=== PATIENT | female | born 1980 | race Two or more races ===

== ENCOUNTER 2018-03-27 13:09 | Emergency (ER) | payer MEDICAID ==
[~2018-03-27] VITALS: Ht 167.6 cm; Wt 81.8 kg
[~2018-03-27 13:09] MED LIST: ALBU8.5H8 IH; CHOL500044 PO; CITA40TA22 PO; HYDR-4353 PO; IBUP-1985 PO; LORA-269 PO; OXYC-150 PO; TIZA4CAP PO; TOP100T PO; TURM500C3 PO; ZALE10CA PO
[2018-03-27 13:21] VITALS: BP 113/74
== END 2018-03-27 14:30 | disposition home or self-care (01) ==
LOC: ER 13:09
DX: M25.531 Pain in right wrist (principal); G89.29 Other chronic pain; G43.909 Migraine, unspecified, not intractable, without status migrainosus; Z88.1 Allergy status to other antibiotic agents; Z88.5 Allergy status to narcotic agent; Z79.899 Other long term (current) drug therapy; W18.39XA Other fall on same level, initial encounter; Y93.89 Activity, other specified; Y92.89 Other specified places as the place of occurrence of the external cause; Y99.8 Other external cause status
CPT/HCPCS: 73110; 99284

== ENCOUNTER 2018-08-18 05:11 | Day surgery (SDC) | payer MEDICAID ==
[2018-08-16 15:24] LABS: BASOPHILS # (AUTO) 0.1 X10'3 (0-0.2); EOSINOPHILS # (AUTO) 0.2 X10'3 (0-0.9); EOSINOPHILS % (AUTO) 2.6 % (0-6); LYMPHOCYTES # (AUTO) 2.2 X10'3 (1.1-4.8); LYMPHOCYTES % (AUTO) 28.8 % (21-51); MEAN CORPUSCULAR HEMOGLOBIN 21.2 PG (27.0-31.0); MEAN CORPUSCULAR HGB CONC 30.9 g/dL (33.0-36.5); MEAN CORPUSCULAR VOLUME 68.5 FL (78-98); MEAN PLATELET VOLUME 8.5 FL (7.4-10.4); MONOCYTES # (AUTO) 0.4 X10'3 (0-0.9); MONOCYTES % (AUTO) 5.2 % (2-12); NEUTROPHILS # (AUTO) 4.7 X10'3 (1.8-7.7); NEUTROPHILS % (AUTO) 62.4 % (42-75); PRE OP HEMATOCRIT 33.3 % (35.0-45.0); PRE OP PLATELET COUNT 336 X10'3 (140-440); RED BLOOD COUNT 4.86 X10'6 (4.20-5.60); RED CELL DISTRIBUTION WIDTH 18.3 % (11.5-14.5)
[2018-08-16 15:27] LABS: PRE OP HEMOGLOBIN 10.3 g/dL (12.0-16.0)
[2018-08-16 15:34] LABS: PRE OP PROTIME 10.3 SECONDS (9.0-12.0)
[2018-08-16 15:35] LABS: HCG SERUM QL NEGATIVE
[2018-08-16 15:42] LABS: ALBUMIN 3.5 G/DL (3.4-5.0); ALBUMIN/GLOBULIN RATIO 0.9 (1.1-1.5); ALKALINE PHOSPHATASE 71 IU/L (46-116); BLOOD UREA NITROGEN 10 MG/DL (7-18); BUN/CREATININE RATIO 13.7 (6.6-38.0); CALCIUM 8.7 MG/DL (8.5-10.1); CHLORIDE 108 MMOL/L (99-107); CREATININE 0.73 MG/DL (0.40-0.90); PRE OP ALT 22 U/L (30-65); PRE OP ANION GAP 11 (8-16); PRE OP AST 13 U/L (10-37); PRE OP BILIRUB, TOTAL 0.1 MG/DL (0.0-1.0); PRE OP GLUCOSE 100 MG/DL (70-104); PRE OP POTASSIUM 4.2 MMOL/L (3.4-5.1); PRE OP SODIUM 142 MMOL/L (135-145); TOTAL CARBON DIOXIDE 23.4 MMOL/L (24-32); TOTAL PROTEIN 7.5 G/DL (6.4-8.2); eGFR 89 ML/MIN
[2018-08-16 16:07] LABS: CLARITY,URINE SLIGHTLY CLOUDY (Clear); COLOR,URINE YELLOW (Yellow); GLUCOSE, URINE NEGATIVE (Neg); KETONES,URINE NEGATIVE (Neg); LEUKOCYTE ESTERASE ,URINE NEGATIVE (Neg); NITRITES, URINE NEGATIVE (Neg); OCCULT BLOOD,URINE NEGATIVE (Neg); PH,URINE 5.5 (4.8-8.0); PROTEIN,URINE NEGATIVE (Neg); UA COLLECTION TYPE CLN CATCH MIDSTREAM; UROBILINOGEN,URINE 0.2 E.U/dL (0.2-1.0)
[2018-08-16 16:12] LABS: PLATELET ESTIMATE NORMAL
[2018-08-16 16:13] LABS: ANISOCYTOSIS 2+; ELLIPTOCYTES FEW; MICROCYTOSIS 2+; POIKILOCYTOSIS 1+
[2018-08-16 16:17] LABS: BACTERIA,URINE 2+ /HPF (Neg); MUCUS STRANDS MODERATE /LPF (Neg); RBC,URINE NONE SEEN /HPF (0-2); SQUAMOUS EPITHELIAL CELL,UR MANY /LPF (FEW); WBC,URINE 0-4 /HPF (0-4)
[~2018-08-18] VITALS: Ht 167.6 cm; Wt 83.0 kg
[2018-08-18] VITALS (14 sets, daily range): BP systolic 112–132; BP diastolic 53–93
[~2018-08-18 05:11] MED LIST changes: -CHOL500044 PO; +FLUT1AER7 INH; -IBUP-1985 PO; +IRON150C5 PO; -LORA-269 PO; -OXYC-150 PO; +OXYC10TA47 PO; -TURM500C3 PO; +ringers solution, lacted 1,000 ML IV SCH
[2018-08-18] MEDS ORDERED: famotidine 20mg tablet PO ONE (05:30)
[2018-08-18] MEDS ORDERED: albuterol 2.5 MG/3 ML nebule NEB ONE (05:30)
[2018-08-18] MEDS ORDERED: LIDOcaine 1% (10mg/ml) 2ml vial ONE (05:47)
[2018-08-18] MEDS ORDERED: fentaNYL/PF 50MCG/1 ML 2ML syringe ONE (07:37)
[2018-08-18] MEDS ORDERED: propofol inj 20 ML IV ONE (07:37)
[2018-08-18] MEDS ORDERED: midazolam 2 mg/2 ml injection ONE (07:37)
[2018-08-18] MEDS ORDERED: ringers solution, lacted 1,000 ML IV SCH (07:43)
[2018-08-18] MEDS ORDERED: meperidine/PF 25mg/ml syringe IV PRN ×3 (07:45)
[2018-08-18] MEDS ORDERED: morphine 4 MG/ML inj SYRINge IV PRN ×2 (07:45)
[2018-08-18] MEDS ORDERED: proCHLORperazine 10 MG/2 ml inj IV PRN (07:45)
[2018-08-18] MEDS ORDERED: ondansetron/PF 4mg/2ml inj IV PRN (07:45)
[2018-08-18] MEDS ORDERED: ketorolac trometh. 30mg/ml inj. ONE (08:18)
--- NOTE | 2018-08-18 08:33 | NUR ---
Received from OR via [facility] , accompanied by Anesthesiologist NOAH and report given by Anesthesiolgist. PATIENT WITH 20G PIV IN RIGHT UE RUNNING LR AT 100. DENIES PAIN AFTER LMA REMOVED. VSS AT THIS TIME. LINDSAY PAD IN PLACE. 10L MASK ON WITH 100% SATURATIONS. Addendum: 08/18/18 at 0882 by Prasad Hughes RN, RN Amended: Links added.
[2018-08-18] MEDS ORDERED: oxyCODONE/APAP 5-325mg tablet PO ONE (08:40)
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
== END 2018-08-18 10:23 | disposition home or self-care (01) ==
LOC: PAS 05:11
PROVIDERS: ATTEND Obstetrics & Gynecology
DX: N92.0 Excessive and frequent menstruation with regular cycle (principal); J45.909 Unspecified asthma, uncomplicated; G47.30 Sleep apnea, unspecified; F41.9 Anxiety disorder, unspecified; F32.9 Major depressive disorder, single episode, unspecified; M79.7 Fibromyalgia; I69.854 Hemiplegia and hemiparesis following other cerebrovascular disease affecting left non-dominant side; Z88.0 Allergy status to penicillin; Z88.1 Allergy status to other antibiotic agents; Z88.8 Allergy status to other drugs, medicaments and biological substances; Z79.899 Other long term (current) drug therapy; Z98.890 Other specified postprocedural states; Z79.01 Long term (current) use of anticoagulants; Z98.1 Arthrodesis status; Z98.51 Tubal ligation status; Z98.2 Presence of cerebrospinal fluid drainage device
CPT/HCPCS: 36415; 58563; 80053; 81001; 82948; 84703; 85025; 85610; 85730; 86885; 86900; 86901; A6255; J1885; J2175; J2250; J2270; J2704; J3010; J3490; J7030; J7120; A4355

== ENCOUNTER 2018-10-26 18:11 | Emergency (ER) | payer MEDICAID ==
[~2018-10-26] VITALS: Ht 170.2 cm; Wt 83.9 kg
[~2018-10-26 18:11] MED LIST changes: -ringers solution, lacted 1,000 ML IV SCH
[2018-10-26 18:28] VITALS: BP 106/68
[2018-10-26] MEDS ORDERED: KETO10DR3 EACHEYE (18:55)
== END 2018-10-26 19:04 | disposition home or self-care (01) ==
LOC: ER 18:12
DX: H10.12 Acute atopic conjunctivitis, left eye (principal); G43.909 Migraine, unspecified, not intractable, without status migrainosus; G89.29 Other chronic pain; Z98.890 Other specified postprocedural states; Z88.1 Allergy status to other antibiotic agents; Z88.0 Allergy status to penicillin; Z88.5 Allergy status to narcotic agent; Z79.899 Other long term (current) drug therapy
CPT/HCPCS: 99282

== ENCOUNTER 2018-10-31 11:15 | Emergency (ER) | payer MEDICAID ==
[~2018-10-31] VITALS: Ht 170.2 cm; Wt 84.1 kg
[~2018-10-31 11:15] MED LIST changes: +KETO10DR3 EACHEYE
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
--- NOTE | 2018-10-31 12:23 | NUR ---
PT UNABLE TO WAIT FOR PCP AT 330 DUE TO PAIN
[2018-10-31] MEDS ORDERED: metoclopramide 5 mg/ml inj IM ONE (12:50)
[2018-10-31] MEDS ORDERED: diphenhydrAMINE 50 mg/ml inj IM ONE (12:50)
--- NOTE | 2018-10-31 12:51 | NUR ---
REPEATED VISUAL ACUITY, NO CHANGE NOTED. CAN HARDLY SEE OUT OF HER LEFT, ABOUT 20/20 IN THE RIGHT
[2018-10-31 13:05] VITALS: BP 121/75
== END 2018-10-31 14:20 | disposition home or self-care (01) ==
LOC: ER 11:15
DX: G43.909 Migraine, unspecified, not intractable, without status migrainosus (principal); H53.142 Visual discomfort, left eye; G89.29 Other chronic pain; Z88.1 Allergy status to other antibiotic agents; Z88.0 Allergy status to penicillin; Z88.5 Allergy status to narcotic agent; Z88.6 Allergy status to analgesic agent; Z79.899 Other long term (current) drug therapy; Z98.890 Other specified postprocedural states
CPT/HCPCS: 96372; 99283; J1200; J2765

== ENCOUNTER 2019-07-26 14:08 | Outpatient (CLI) | payer MEDICAID ==
[~2019-07-26] VITALS: Ht 170.2 cm; Wt 83.9 kg
[2019-07-26] MEDS ORDERED: albuterol 2.5 MG/3 ML nebule NEB PRN (15:10)
== END 2019-07-26 23:59 | disposition home or self-care (01) ==
LOC: RT 14:08
PROVIDERS: ATTEND Family Medicine
DX: R06.02 Shortness of breath (principal)
CPT/HCPCS: 94060; 94760

== ENCOUNTER 2019-12-14 19:32 | Inpatient (IN) | payer MEDICAID ==
[~2019-12-14] VITALS: Ht 167.6 cm; Wt 84.1 kg
[2019-12-14 20:40] LABS: BASOPHILS % (AUTO) 0.2 % (0-1); EOSINOPHILS % (AUTO) 0.2 % (0-6); HEMATOCRIT 41.1 % (35.0-45.0); HEMOGLOBIN 13.7 g/dl (12.0-16.0); LYMPHOCYTES # (AUTO) 0.6 X10'3 (1.1-4.8); LYMPHOCYTES % (AUTO) 10.8 % (21-51); MEAN CORPUSCULAR HEMOGLOBIN 28.7 PG (27.0-31.0); MEAN CORPUSCULAR HGB CONC 33.3 g/dL (33.0-36.5); MEAN PLATELET VOLUME 8.4 FL (7.4-10.4); MONOCYTES # (AUTO) 0.5 X10'3 (0-0.9); MONOCYTES % (AUTO) 8.3 % (2-12); NEUTROPHILS # (AUTO) 4.5 X10'3 (1.8-7.7); NEUTROPHILS % (AUTO) 80.5 % (42-75); PLATELET COUNT 246 X10'3 (140-440); RED BLOOD COUNT 4.78 X10'6 (4.20-5.60); RED CELL DISTRIBUTION WIDTH 13.9 % (11.5-14.5); WHITE BLOOD COUNT 5.6 X10'3 (4.5-11.0)
[2019-12-14 20:50] LABS: ALANINE AMINOTRANSFERASE 50 U/L (12-78); ALBUMIN/GLOBULIN RATIO 0.7 (1.1-1.5); ALKALINE PHOSPHATASE 78 IU/L (46-116); ANION GAP 13 (8-16); ASPARTATE AMINO TRANSFERASE 36 U/L (10-37); BILIRUBIN,TOTAL 0.4 MG/DL (0.1-1.0); BLOOD UREA NITROGEN 13 MG/DL (7-18); BUN/CREATININE RATIO 16.7 (6.6-38.0); CALCIUM 9.2 MG/DL (8.5-10.1); CHLORIDE 107 MMOL/L (99-107); CREATININE 0.78 MG/DL (0.40-0.90); GLUCOSE 101 MG/DL (70-104); POTASSIUM 3.5 MMOL/L (3.5-5.1); SODIUM 144 MMOL/L (135-145); TOTAL CARBON DIOXIDE 24.2 MMOL/L (24-32); TOTAL PROTEIN 7.6 G/DL (6.4-8.2); eGFR 82 ML/MIN
[2019-12-14] MEDS ORDERED: DOXYCYCLINE 100MG CAPSULE PO STA (21:22)
[2019-12-14] MEDS ORDERED: SUMA25TA35 PO (21:44)
--- NOTE | 2019-12-14 23:10 | NUR ---
PT CO HEADACHE 09/28, JOHN HELLER NOTIFIED, VERBAL ORDER TYLENOL 650 MG
[2019-12-14] MEDS ORDERED: acetaminophen 325mg tablet PO ONE (23:15)
[2019-12-14] MEDS ORDERED: normal saline 1000ml 1,000 ML IV SCH (23:36)
[2019-12-14] MEDS ORDERED: ondansetron/PF 4mg/2ml inj IV PRN (23:40)
[2019-12-14] MEDS ORDERED: potassium Cl 20 mEq SR tablet PO PRN ×2 (23:40)
[2019-12-14] MEDS ORDERED: magnesium 2GM in 50ml NS 50 ML IV PRN (23:40)
[2019-12-14] MEDS ORDERED: potassium CL 10mEq/100ml bag 100 ML IV PRN ×2 (23:40)
[2019-12-14] MEDS ORDERED: magnesium 4gm in 100ml NS 100 ML IV PRN (23:40)
[2019-12-14] MEDS ORDERED: magnesium Cl slow-release 64mg tablet PO PRN (23:40)
[2019-12-14] MEDS ORDERED: levoFLOXACIN-Levaquin 500mg/D5 100 ML IV SCH (23:40)
[2019-12-14 23:50] LABS: HCG SERUM QL NEGATIVE
[2019-12-15 00:30] VITALS: BP 108/70
[2019-12-15] MEDS ORDERED: GABA-530 PO (00:44)
[2019-12-15] MEDS ORDERED: gabapentin 100mg capsule PO SCH (02:10)
[2019-12-15 04:22] LABS: BASOPHILS % (AUTO) 0.1 % (0-1); EOSINOPHILS % (AUTO) 0.2 % (0-6); HEMOGLOBIN 13.2 g/dl (12.0-16.0); LYMPHOCYTES # (AUTO) 0.6 X10'3 (1.1-4.8); LYMPHOCYTES % (AUTO) 11.1 % (21-51); MEAN CORPUSCULAR HEMOGLOBIN 28.7 PG (27.0-31.0); MEAN CORPUSCULAR HGB CONC 33.8 g/dL (33.0-36.5); MEAN CORPUSCULAR VOLUME 85.2 FL (78-98); MEAN PLATELET VOLUME 8.1 FL (7.4-10.4); MONOCYTES # (AUTO) 0.5 X10'3 (0-0.9); MONOCYTES % (AUTO) 10.3 % (2-12); NEUTROPHILS # (AUTO) 4.1 X10'3 (1.8-7.7); NEUTROPHILS % (AUTO) 78.3 % (42-75); PLATELET COUNT 249 X10'3 (140-440); RED BLOOD COUNT 4.58 X10'6 (4.20-5.60); RED CELL DISTRIBUTION WIDTH 13.8 % (11.5-14.5); WHITE BLOOD COUNT 5.2 X10'3 (4.5-11.0)
[2019-12-15 04:29] LABS: ALBUMIN 2.7 G/DL (3.4-5.0); ANION GAP 12 (8-16); BLOOD UREA NITROGEN 12 MG/DL (7-18); BUN/CREATININE RATIO 18.8 (6.6-38.0); CALCIUM 8.8 MG/DL (8.5-10.1); CHLORIDE 108 MMOL/L (99-107); CREATININE 0.64 MG/DL (0.40-0.90); GLUCOSE 94 MG/DL (70-104); POTASSIUM 3.6 MMOL/L (3.5-5.1); SODIUM 144 MMOL/L (135-145); TOTAL CARBON DIOXIDE 24.2 MMOL/L (24-32); eGFR > 90 ML/MIN
[2019-12-15 06:00] VITALS: BP 101/59
--- NOTE | 2019-12-15 06:30 | NUR ---
Patient in room [facility]TH[facility] 4018. I have received report from Duyen and had the opportunity to ask questions and assume patient care.
--- NOTE | 2019-12-15 06:44 | NUR ---
Problems reprioritized. Patient report given, questions answered & plan of care reviewed with RAFIA Osborne.
[2019-12-15 08:00] VITALS: BP 112/65
[2019-12-15] MEDS ORDERED: K and/or MAG REPLACEMENT MC SCH (08:00)
[2019-12-15] MEDS ORDERED: enoxaparin 40mg/0.4ml syringe SUBCUT SCH (08:40)
--- NOTE | 2019-12-15 09:57 | NUR ---
PAGER ID: [phone] MESSAGE: Pallavi Ms. Alegre in [phone] would like something for pain, thank you [place] #[phone]
[2019-12-15] MEDS ORDERED: acetaminophen 325mg tablet PO PRN (10:00)
[2019-12-15 10:05] LABS: C-REACTIVE PROTEIN 9.17 MG/DL (0.0-0.5)
--- NOTE | 2019-12-15 11:20 | NUR ---
Discharge instructions reviewed with pt. Pt verbalized understanding. Pt dressed, collected belongings, placed N-95 mask on pt and pt was wheeled downstairs to be driven home by her spouse.
== END 2019-12-15 11:45 | disposition home or self-care (01) | DRG 137 ==
LOC: ER 19:32 → UNDOADMIN 23:36 → ED HOLD 23:36 → ORTHO 4S 12-15 00:15
PROVIDERS: ADMIT Internal Medicine; ATTEND Internal Medicine
DX: U07.1 COVID-19 (principal); J12.89 Other viral pneumonia; J44.0 Chronic obstructive pulmonary disease with (acute) lower respiratory infection; F32.9 Major depressive disorder, single episode, unspecified; F41.9 Anxiety disorder, unspecified; G43.909 Migraine, unspecified, not intractable, without status migrainosus; R09.02 Hypoxemia; G89.29 Other chronic pain; R19.7 Diarrhea, unspecified; Z88.0 Allergy status to penicillin; Z88.5 Allergy status to narcotic agent
CPT/HCPCS: 36415; 71045; 80048; 80053; 83605; 83615; 83735; 84703; 85025; 85379; 86140; 87040; 87070; 87081; 93005; 99285; G0378; J1650; J1956; J7030

== ENCOUNTER 2021-01-13 17:53 | Emergency (ER) | payer MEDICAID ==
[~2021-01-13] VITALS: Ht 167.6 cm; Wt 90.0 kg
[~2021-01-13 17:53] MED LIST changes: +ALBU8.5H17 IH; -ALBU8.5H8 IH; +GABA-530 PO; -KETO10DR3 EACHEYE; +SUMA25TA35 PO
[2021-01-14] MEDS ORDERED: dexamethasone sod phosphate 10mg/ml inj IV STA (00:01)
[2021-01-14] MEDS ORDERED: proCHLORperazine 10 MG/2 ml inj IV ONE (00:05)
[2021-01-14] MEDS ORDERED: normal saline 1000ML IV soln IVB ONE (00:05)
[2021-01-14] MEDS ORDERED: ketorolac trometh. 30mg/ml inj. IV ONE (00:05)
[2021-01-14 01:01] LABS: ALANINE AMINOTRANSFERASE 39 U/L (12-78); ALBUMIN 3.8 G/DL (3.4-5.0); ALKALINE PHOSPHATASE 77 IU/L (46-116); ANION GAP 11 (8-16); ASPARTATE AMINO TRANSFERASE 21 U/L (10-37); BILIRUBIN,TOTAL 0.4 MG/DL (0.1-1.0); BLOOD UREA NITROGEN 10 MG/DL (7-18); BUN/CREATININE RATIO 14.9 (6.6-38.0); CALCIUM 8.9 MG/DL (8.5-10.1); CHLORIDE 109 MMOL/L (99-107); CREATININE 0.67 MG/DL (0.40-0.90); GLUCOSE 87 MG/DL (70-104); POTASSIUM 3.9 MMOL/L (3.5-5.1); SODIUM 146 MMOL/L (135-145); TOTAL CARBON DIOXIDE 25.6 MMOL/L (24-32); TOTAL PROTEIN 7.6 G/DL (6.4-8.2); eGFR > 90 ML/MIN
[2021-01-14 01:09] LABS: C-REACTIVE PROTEIN 0.39 MG/DL (0.0-0.5)
[2021-01-14 01:19] LABS: BASOPHILS % (AUTO) 0.5 % (0-1); EOSINOPHILS # (AUTO) 0.2 X10'3 (0-0.9); EOSINOPHILS % (AUTO) 2.6 % (0-6); HEMATOCRIT 40.7 % (35.0-45.0); LYMPHOCYTES # (AUTO) 2.5 X10'3 (1.1-4.8); MEAN CORPUSCULAR HEMOGLOBIN 29.7 PG (27.0-31.0); MEAN CORPUSCULAR HGB CONC 34.4 g/dL (33.0-36.5); MEAN CORPUSCULAR VOLUME 86.5 FL (78-98); MEAN PLATELET VOLUME 8.7 FL (7.4-10.4); MONOCYTES # (AUTO) 0.5 X10'3 (0-0.9); MONOCYTES % (AUTO) 5.5 % (2-12); NEUTROPHILS # (AUTO) 5.6 X10'3 (1.8-7.7); NEUTROPHILS % (AUTO) 63.4 % (42-75); PLATELET COUNT 251 X10'3 (140-440); RED BLOOD COUNT 4.71 X10'6 (4.20-5.60); RED CELL DISTRIBUTION WIDTH 13.8 % (11.5-14.5); WHITE BLOOD COUNT 8.9 X10'3 (4.5-11.0)
--- NOTE | 2021-01-14 01:35 | NUR ---
PT IS ASKING TO LEAVE DR INMAN TO BEDSIDE INCOURAGED PT TO TAKE THE REMAINGING FLUIDS
[2021-01-14 01:43] VITALS: BP 123/44
== END 2021-01-14 01:45 | disposition home or self-care (01) ==
LOC: ER 17:54
DX: G43.909 Migraine, unspecified, not intractable, without status migrainosus (principal); R53.1 Weakness; G89.29 Other chronic pain; F41.9 Anxiety disorder, unspecified; F32.9 Major depressive disorder, single episode, unspecified; Z98.890 Other specified postprocedural states; Z88.1 Allergy status to other antibiotic agents; Z88.0 Allergy status to penicillin; Z88.5 Allergy status to narcotic agent; Z88.8 Allergy status to other drugs, medicaments and biological substances; Z79.899 Other long term (current) drug therapy
CPT/HCPCS: 36415; 70450; 80053; 84443; 85025; 86140; 96361; 96374; 96375; 99284; J0780; J1100; J1885; J7030

== ENCOUNTER 2022-11-03 10:26 | Outpatient (CLI) | payer MEDICAID | END 2022-11-03 23:59 | disposition home or self-care (01) | LOC: RAD 10:26 | PROVIDERS: ATTEND Family Medicine | DX: K80.20 Calculus of gallbladder without cholecystitis without obstruction (principal); N85.8 Other specified noninflammatory disorders of uterus; R10.84 Generalized abdominal pain | CPT/HCPCS: 76700; 76856; 93976 ==

== ENCOUNTER 2022-12-16 13:16 | Outpatient (CLI) | payer MEDICAID, OTHER | END 2022-12-16 23:59 | disposition home or self-care (01) | LOC: RAD 13:16 | PROVIDERS: ATTEND Nurse Practitioner Family | DX: R93.89 Abnormal findings on diagnostic imaging of other specified body structures (principal); R10.2 Pelvic and perineal pain; R10.9 Unspecified abdominal pain; Z90.49 Acquired absence of other specified parts of digestive tract | CPT/HCPCS: 76830; 76856; 93976 ==

== ENCOUNTER 2022-12-16 14:11 | Emergency (ER) | payer MEDICAID, OTHER | END 2022-12-16 14:50 | disposition left against medical advice (07) | LOC: ER 14:12 | DX: R10.9 Unspecified abdominal pain (principal); Z53.21 Procedure and treatment not carried out due to patient leaving prior to being seen by health care provider ==